=== PATIENT | female | born 1935 | race Caucasian/White ===

== ENCOUNTER 2017-02-06 09:06 | Inpatient (IN) | payer OTHER ==
[2016-12-29 10:40] VITALS: Ht 162.6 cm; Wt 79.9 kg
--- NOTE | 2016-12-29 11:16 | PAT Medication Instructions ---
Service Date Dec 29, 2016. Current Home Medication List Aspirin (Aspir-81), 81 MG PO HS Atorvastatin (Lipitor), 10 MG PO Q2D Calcium Carbonate (Tums), 2 TAB PO BID Cholecalciferol (Vitamin D3), 2,000 UNITS PO QAM Coenzyme Q10 (Ubidecarenone) (Coq-10), 100 MG PO QAM Ezetimibe (Zetia), 10 MG PO HS Ibuprofen (Advil), 400 MG PO PRN Indapamide (Lozol), 2.5 MG PO 3XWEEK Latanoprost (Latanoprost), 1 DROP OPB HS Levocetirizine Dihydrochloride (Xyzal), 1 TAB PO HS Pantoprazole (Protonix), 40 MG PO Q2D Potassium Chloride (Micro-K Ext Rel), 20 MEQ PO QAM Senna (Senokot), 1 TAB PO HS Valsartan (Diovan), 40 MG PO HS [Premarin Cream], 1 DOSE TOP 2XWEEK Medication Instructions For Your Scheduled Surgery - Hold the following medications 2 weeks prior to surgery: Coenzyme Q10 (Ubidecarenone) (Coq-10), 100 MG PO QAM - Hold the following medications 7 days prior to surgery per surgeon instructions: Ibuprofen (Advil), 400 MG PO PRN - Hold the following medications evening prior to surgery: Valsartan (Diovan), 40 MG PO HS - Hold the following medications the morning of surgery: Potassium Chloride (Micro-K Ext Rel), 20 MEQ PO QAM Indapamide (Lozol), 2.5 MG PO 3XWEEK Cholecalciferol (Vitamin D3), 2,000 UNITS PO QAM Calcium Carbonate (Tums), 2 TAB PO BID - Take the following medications the morning of surgery with a sip of water: Pantoprazole (Protonix), 40 MG PO Q2D - Take the following medications as scheduled the night before surgery: Senna (Senokot), 1 TAB PO HS Premarin Cream, 1 DOSE TOP [id number] Levocetirizine Dihydrochloride (Xyzal), 1 TAB PO HS Latanoprost (Latanoprost), 1 DROP OPB HS Ezetimibe (Zetia), 10 MG PO HS Calcium Carbonate (Tums), 2 TAB PO BID Aspirin (Aspir-81), 81 MG PO HS Atorvastatin (Lipitor), 10 MG PO Q2D If you have any questions please call us at [phone] or [phone] ( [place]) or [phone]
--- NOTE | 2016-12-29 12:10 | DIAGNOSTIC IMAGING REPORT ---
CHEST 2 VIEWS ROUTINE CLINICAL HISTORY: Preoperative chest COMPARISON STUDY: 06/10/2014 FINDINGS: The cardiac and mediastinal contours are normal. There is no evidence of focal pulmonary consolidation. There is no evidence of failure. No pleural effusions are visualized.[ IMPRESSION: No active disease in the chest. Electronically signed by: Javad Sosa M.D. 12/29/2016 12:08 PM Dictated Date/Time: 12/29/2016 12:08 PM
[2016-12-29 12:27] LABS: BASO % 0.2 %; BASO ABS # 0.01 K/uL (0-0.2); COMPLETE YES; EOS % 5.7 %; HEMATOCRIT 38.6 % (37-47); IG% 0.2 %; LYMPH % 32.7 %; LYMPH ABS # 1.66 K/uL (1.2-3.4); MEAN CELL VOLUME 86.7 fL (80-100); MEAN CORPUSCULAR HEMOGLOBIN 30.1 pg (25-34); MEAN CORPUSCULAR HGB CONC 34.7 g/dl (32-36); MEAN PLATELET VOLUME 10.7 fL (7.4-10.4); MONO % 12.8 %; NEUT % 48.4 %; PLATELET COUNT 201 K/uL (130-400); RED BLOOD COUNT 4.45 M/uL (4.2-5.4); WHITE BLOOD COUNT 5.08 K/uL (4.8-10.8)
[2016-12-29 12:38] LABS: PROTHROMBIN TIME (PATIENT) 10.6 SECONDS (9.0-12.0)
[2016-12-29 12:42] LABS: URINE APPEARANCE CLOUDY (CLEAR); URINE BILIRUBIN NEG (NEG); URINE COLOR YELLOW; URINE EPITHELIAL CELL AUTO >30 /lpf (0-5); URINE NITRITE POS (NEG); URINE PH 5.5 (4.5-7.5); URINE SPECIFIC GRAVITY 1.022 (1.000-1.030); UROBILINOGEN NEG (NEG); ZZUR CULT IF INDIC CLEAN CATCH YES
[2016-12-29 12:52] LABS: MANUAL MICROSCOPIC REQUIRED? NO; REVIEW REQ? NO
[2016-12-29 13:17] LABS: BUN/CREATININE RATIO 21.2 (10-20); CALCIUM 9.1 mg/dl (8.5-10.1); CREATININE 0.98 mg/dl (0.60-1.20); POTASSIUM 3.5 mmol/L (3.5-5.1)
--- NOTE | 2017-02-01 14:44 | History and Physical ---
History & Physical Date Feb 01, 2017. Chief Complaint LEFT KNEE PAIN History of Present Illness The patient is a 82 year old female with complaints of left knee pain x 3-4 years. Patient rates the pain 5/10. She has pain with her daily activities, she has limited standing and walking tolerance. She has pain with weight bearing. Patient has failed injections, bracing, and NSAIDS. She is ready to proceed with left TKA. Past Medical/Surgical History HTN Hypercholesterolemia Acid Reflux Glaucoma Denies CAD, DM, DVT Additional History Hepatic Disease: No Endocrine Disorder: No Kidney Disease: No Hypertension: Yes Bleeding Tendencies: No Infectious Diseases: No Allergies Coded Allergies: Dorzolamide (Verified Adverse Reaction, Mild, BURNING, REDDNESS, WATERING OF EYES, 12/29/16) Home Medications Scheduled Aspirin (Aspir-81), 81 MG PO HS Atorvastatin (Lipitor), 10 MG PO Q2D Calcium Carbonate (Tums), 2 TAB PO BID Cholecalciferol (Vitamin D3), 2,000 UNITS PO QAM Coenzyme Q10 (Ubidecarenone) (Coq-10), 100 MG PO QAM Ezetimibe (Zetia), 10 MG PO HS Ibuprofen (Advil), 400 MG PO PRN Indapamide (Lozol), 2.5 MG PO 3XWEEK Latanoprost (Latanoprost), 1 DROP OPB HS Levocetirizine Dihydrochloride (Xyzal), 1 TAB PO HS Pantoprazole (Protonix), 40 MG PO Q2D Potassium Chloride (Micro-K Ext Rel), 20 MEQ PO QAM Senna (Senokot), 1 TAB PO HS Valsartan (Diovan), 40 MG PO HS [Premarin Cream], 1 DOSE TOP 2XWEEK Physical Examination Skin: warm/dry, no rash Eyes: normal inspection, EOMI, sclerae normal ENT: normal ENT inspection, pharynx normal Head: normocephalic, atraumatic Neck: supple, no adenopathy, trachea midline Respiratory/Chest: lungs clear, normal breath sounds, no respiratory distress Cardiovascular: regular rate, rhythm, no edema, no murmur Abdomen / GI: normal bowel sounds, non tender Back: normal inspection Extremities: normal inspection, + pertinent finding (neutral allignment, ROM 0- 115, +1 medial laxity. Vericose veins.) Neurologic/Psych: no motor/sensory deficits, alert, normal reflexes, oriented x 3 Diagnosis DJD LEFT KNEE Plan of Treatment Patient is going to proceed with left TKA with Dr. Cody at [facility] on January. She is planning to use [facility] for home PT upon discharge.
[~2017-02-06] VITALS: Ht 162.6 cm; Wt 79.9 kg
[~2017-02-06 09:06] MED LIST: ACETAMINOPHEN 500 MG TAB PO SCH; ASPI-232 PO; ATOR10TA88 PO; BUPIVACAINE 0.25% 30 ML VIAL ONE; BUPIVACAINE 0.5 % 5 MG/1 ML PF 10ML VIAL ONE; CALC500C3 PO; CEFAZOLIN 1000MG/55 ML D5W 55 ML IV SCH; COEN100C11 PO; CeleBREX 200 MG CAP PO SCH; DEXAMETHASONE 4 MG TAB PO SCH; DEXAMETHASONE INJ 8 MG in SYRINGE 0 ML IV SCH; EZET10TA63 PO; FAMOTIDINE 20 MG TAB PO SCH; IBUP-1050 PO; INDA1TAB3 PO; LACTATED RINGER'S 1000ML 1,000 ML IV SCH; LACTATED RINGER'S 1000ML IV SCH; LEVO-371 PO; METOCLOPRAMIDE HCL 10 MG TAB PO SCH; PANT40TA PO; POTA-335 PO; PREMARIN CREAM TOP; ROPIVACAINE 5MG/ML 30 ML 150 MG, BUPIVACAINE/EPINEPHR 0.5% MPF 30 ML, KETOROLAC TROMETH... INFIL SCH; SENN-61 PO; VALS40TA2 PO; VTMD1000 PO; XLTOPS OPB
[2017-02-06] MEDS ORDERED: MIDAZOLAM HCL 1 MG/ML 2ML VIAL ONE (09:21)
[2017-02-06] MEDS ORDERED: FENTANYL CITRATE INJ 50 MCG/1 ML 2 ML VIAL ONE (09:22)
[2017-02-06 09:33] VITALS: BP 151/70; PULSE 65; TEMP 36.5; O2SAT 97
--- NOTE | 2017-02-06 09:43 | History & Physical Bridge Note ---
H&P Re-Evaluation Bridge Note: I have examined the patient, reviewed the History & Physical and in the interval since the performance of the History & Physical I have noted the following changes of clinical significance: No changes noted
[2017-02-06] MEDS ORDERED: POVIDONE-IODINE OP SOLN 30 ML BTL ONE (10:09)
[2017-02-06] MEDS ORDERED: BACITRACIN 50000 UNIT VIAL ONE (10:09)
[2017-02-06] MEDS ORDERED: ORTHO JOINT ANESTHETIC ONE (10:09)
[2017-02-06] MEDS: TRANEXAMIC ACID INJ 1,000 MG in SODIUM CHLORIDE 0.9% 100ML 100 ML IV SCH ×2 (10:09→13:35)
[2017-02-06] MEDS ORDERED: PHENYLEPHRINE 100MCG/ML 5ML SYR IV PRN (10:45)
[2017-02-06] MEDS ORDERED: EpHEDrine SULFATE INJ 50 MG/ML AMP IV PRN (10:45)
[2017-02-06] MEDS ORDERED: ATROPINE SULFATE 0.1 MG/ML 5ML SYR IV PRN (10:45)
[2017-02-06] MEDS ORDERED: ONDANSETRON INJ 2 MG/ML 2 ML VIAL IV PRN ×2 (10:45→11:45)
[2017-02-06] MEDS ORDERED: HYDROmorphone INJ 2 MG/ML SYR/VIAL IV PRN (10:45)
[2017-02-06] MEDS ORDERED: KETOROLAC TROMETHAMINE 30 MG/ML VIAL IV. PRN (10:45)
[2017-02-06] MEDS ORDERED: LIDOCAINE HCL 2% 2 ML VIAL (20MG/ML) ONE (11:18)
[2017-02-06] MEDS ORDERED: PROPOFOL IV EMULSION 10 MG/ML 20 ML VIAL IV ONE (11:18)
[2017-02-06] MEDS ORDERED: ALUMINUM/MAGNESIUM/SIMETH (MAALOX MAX) 30 ML UDC PO PRN (11:45)
[2017-02-06] MEDS ORDERED: ZOLPIDEM TARTRATE 5 MG TAB PO PRN (11:45)
[2017-02-06] MEDS ORDERED: BISACODYL 10 MG SUPP PR PRN (11:45)
[2017-02-06] MEDS ORDERED: OXYCODONE HCL IR 5 MG TAB (IMMEDIATE RELEASE) PO PRN (11:45)
[2017-02-06] MEDS ORDERED: MAGNESIUM HYDROXIDE SUSP 30 ML UDC PO PRN (11:45)
--- NOTE | 2017-02-06 12:51 | Anesthesiology Progress Note ---
Anesthesia Post Op Note Date & Time Feb 06, 2017 at 12:50 Vital Signs Pain Intensity: 0 Vital Signs Past 12 Hours Date Time Temp Pulse Resp B/P (MAP) Pulse Ox O2 Delivery O2 Flow Rate FiO2 02/06/17 12:45 63 18 116/66 99 Nasal Cannula 2 02/06/17 12:35 57 15 119/53 98 Nasal Cannula 2 02/06/17 12:25 61 14 122/60 98 Nasal Cannula 2 02/06/17 12:15 36.1 98 12 126/61 97 Nasal Cannula 2 02/06/17 09:33 36.5 65 18 151/70 97 Room Air Notes Mental Status: alert / awake / arousable, participated in evaluation Pt Amnestic to Procedure: Yes Nausea / Vomiting: adequately controlled Pain: adequately controlled Airway Patency, RR, SpO2: stable & adequate BP & HR: stable & adequate Hydration State: stable & adequate Anesthetic Complications: no major complications apparent
--- NOTE | 2017-02-06 13:07 | [facility] Post Operative Brief Note ---
Immediate Operative Summary Operative Date Feb 06, 2017. Pre-Operative Diagnosis degenerative joint disease left knee Post-Operative Diagnosis degenerative joint disease left knee Procedure(s) Performed Left total knee arthroplasty Surgeon Dr. Terrence Cody Side Trimmer Surgeon(s) Misael Duque PA-C Estimated Blood Loss 20ml Findings as above Specimens A. Left knee bone and tissue Complication(s) None Disposition Recovery Room / PACU
--- NOTE | 2017-02-06 13:08 | OPERATIVE REPORT ---
DATE OF OPERATION: 02/06/2017 PREOPERATIVE DIAGNOSIS: Degenerative joint disease of the left knee. POSTOPERATIVE DIAGNOSIS: Same. PROCEDURE: Left total knee arthroplasty with the use of patient match implants. SURGEON: Terrence Tadeo DO FUR REMODELER: CRISTELA Luna certified. ANESTHESIA: Spinal. COMPLICATIONS: Zero. DISPOSITION: The patient tolerated the procedure well and returned to the recovery room in stable condition. IMPLANTS USED: [employer] II knee size 5 cemented femoral component, a size 3 tibial component, a size 11 PS insert and size 32 all poly patella. INDICATIONS: Ms. Paredes is a pleasant female who has unfortunately failed all forms of conservative measures. Therefore, she has decided to undergo elective surgical intervention. All risks and benefits of the surgery were discussed with the patient and the family in entirety. PROCEDURE: The patient was brought to the operating room and properly identified by myself, anesthesia, and staff. She was given a spinal anesthetic and placed on the operating table in the supine position. Tourniquets were applied to the left upper thigh. The leg was then prepped and draped in usual sterile fashion. We made a standard midline approach over the patella and dissected down through the subcutaneous tissue to identify the capsule and performed a medial capsulotomy with the patella everted and the knee flexed. The patient-matched implant was then put onto the femur. The femur measured to be a size 5. This was then put into place. We made the appropriate cuts and then placed a retractor behind the proximal tibia to retract anteriorly. We then placed the patient-matched knee implant on the tibia. It measured to be a size 3. A size 3 guide was then put in place. We used the tibial punch then put the trial components into place. We had very good range of motion, excellent stability, and excellent patella tracking. We removed the trial components and irrigated the wound. We impacted the components in place using antibiotic cement. All excess cement was removed. We then irrigated the wound once more. We closed the capsule with 0 PDS suture, deep dermis with 2-0 Vicryl, and finally the skin with anmol. A sterile dressing was applied. The patient was taken to the recovery room in stable condition. I attest to the content of the Intraoperative Record and any orders documented therein. Any exceptions are noted below. LEE ANN
[2017-02-06 13:10] VITALS: BP 108/53; PULSE 60; TEMP 36.5; O2SAT 98
[2017-02-06 14:28] VITALS: BP 104/64; PULSE 77; O2SAT 100
[2017-02-06] MEDS: SODIUM CHLORIDE 0.9% 1000ML 1,000 ML IV SCH ×2 (14:36→21:14)
[2017-02-06] MEDS: ACETAMINOPHEN 500 MG TAB PO SCH ×2 (15:23→21:10)
[2017-02-06 16:10] VITALS: BP 110/70; PULSE 78; TEMP 36.5; O2SAT 100
[2017-02-06] MEDS: CEFAZOLIN IV 2,000 MG in DEXTROSE 5% 50ML 50 ML IV SCH (17:38)
[2017-02-06 19:10] VITALS: BP 98/63; PULSE 61; TEMP 36.6; O2SAT 96
[2017-02-06] MEDS: DOCUSATE SODIUM 100 MG CAP PO SCH (21:10)
[2017-02-06] MEDS: CeleBREX 200 MG CAP PO SCH (21:11)
[2017-02-06] MEDS: ASPIRIN 81 MG ECTAB PO SCH (21:13)
[2017-02-06] MEDS ORDERED: NURSING VERBAL MED ORDER ONE (21:30)
[2017-02-06] MEDS ORDERED: LATANOPROST 0.005% OP SOLN 2.5 ML BTL OPB ONE (22:00)
[2017-02-06 23:15] VITALS: BP 102/64; PULSE 67; TEMP 36.6; O2SAT 97
[2017-02-07] MEDS: CEFAZOLIN IV 2,000 MG in DEXTROSE 5% 50ML 50 ML IV SCH (01:31)
[2017-02-07 03:10] VITALS: BP 115/65; PULSE 54; TEMP 36.6; O2SAT 98
[2017-02-07 04:10] VITALS: BP 115/65; PULSE 54; TEMP 36.6; O2SAT 98
[2017-02-07 05:58] LABS: HEMATOCRIT 33.6 % (37-47); MEAN CORPUSCULAR HEMOGLOBIN 30.4 pg (25-34); MEAN CORPUSCULAR HGB CONC 34.5 g/dl (32-36); MEAN PLATELET VOLUME 10.6 fL (7.4-10.4); PLATELET COUNT 171 K/uL (130-400); RED BLOOD COUNT 3.82 M/uL (4.2-5.4); WHITE BLOOD COUNT 7.68 K/uL (4.8-10.8)
[2017-02-07] MEDS: ACETAMINOPHEN 500 MG TAB PO SCH (05:59)
[2017-02-07] MEDS ORDERED: DEXAMETHASONE INJ 10 MG in SYRINGE 0 ML IV ONE (07:30)
[2017-02-07] MEDS: SODIUM CHLORIDE 0.9% 1000ML 1,000 ML IV SCH (07:36)
[2017-02-07 08:00] VITALS: BP 120/78; PULSE 54; TEMP 36.3; O2SAT 99
[2017-02-07 08:13] VITALS: O2SAT 99
[2017-02-07] MEDS: DOCUSATE SODIUM 100 MG CAP PO SCH (08:48)
[2017-02-07] MEDS: CeleBREX 200 MG CAP PO SCH (08:48)
[2017-02-07] MEDS: ASPIRIN 81 MG ECTAB PO SCH (08:48)
[2017-02-07] MEDS ORDERED: PANTOprazole SOD 40 MG TAB PO SCH (09:00)
--- NOTE | 2017-02-07 10:55 | Orthopedic Progress Note ---
Orthopedic Progress Note Date of Service Feb 07, 2017. Subjective Post OP Day: 1 Reports: feeling well, Denies: chest pain, SOB, nausea / vomiting, light headedness, calf pain Objective calves soft nontender, N/V intact, dressing C/D/I, A&O x3, toes mobile, hemovac drainage (200/45cc per shift) Date Time Temp Pulse Resp B/P (MAP) Pulse Ox O2 Delivery O2 Flow Rate FiO2 02/07/17 08:13 99 Room Air 02/07/17 08:00 36.3 54 20 120/78 (92) 99 Room Air 02/07/17 08:00 Room Air 02/07/17 04:10 36.6 54 16 115/65 (82) 98 Room Air 02/06/17 23:15 36.6 67 16 102/64 (77) 97 Room Air 02/06/17 23:10 Room Air 02/06/17 19:10 36.6 61 16 98/63 (75) 96 Room Air 02/06/17 16:10 36.5 78 18 110/70 (83) 100 Nasal Cannula 2.0 02/06/17 14:28 77 18 104/64 (77) 100 Nasal Cannula 2.0 02/06/17 13:10 36.5 60 20 108/53 (71) 98 Nasal Cannula 2.0 02/06/17 13:10 98 Nasal Cannula 2.0 02/06/17 13:10 Nasal Cannula 2.0 02/06/17 12:55 36.2 59 17 113/60 96 Nasal Cannula 2 02/06/17 12:45 63 18 116/66 99 Nasal Cannula 2 02/06/17 12:35 57 15 119/53 98 Nasal Cannula 2 02/06/17 12:25 61 14 122/60 98 Nasal Cannula 2 02/06/17 12:15 36.1 98 12 126/61 97 Nasal Cannula 2 Laboratory Results 24 Hours: Test 02/07/17 05:45 Hematocrit 33.6 % Hemoglobin 11.6 g/dL Assessment & Plan Assessment: POD#1 sp left TKA Inhouse Planning Pain Management: Celebrex, PO Tylenol, Oxy IR DVT Prophylaxis: ASA, other Discharge Planning Discharge Planning: home with home health ([facility])
--- NOTE | 2017-02-07 10:56 | Discharge Instructions ---
Discharge Instructions Date of Service Feb 07, 2017. Admission Reason for Admission: Left Knee Degenerative Arthritis Discharge Discharge Diagnosis / Problem: SP LEFT TKA Discharge Goals Goal(s): Decrease discomfort, Improve function, Increase independence Activity Recommendations Activity Limitations: per Instructions/Follow-up section . Instructions / Follow-Up Instructions / Follow-Up ACTIVITY RECOMMENDATIONS: SELF CARE INSTRUCTIONS AFTER TOTAL KNEE REPLACEMENT A. You may need to continue a physical therapy program after discharge from the hospital. There are several options available to you. Your doctor will assist you in selecting the best one for you. 1. An out-patient facility 2 to 3 times a week for therapy or home therapy. 2. Continue working on all exercises taught to you in the hospital. Your goals should be to increase bending of your knee to 90 degrees and beyond and to fully straighten your knee. B. You may progress at your own pace from walking with a walker or crutches to a cane; then to no assistive devices. C. Make walking a part of your daily routine. Be up as much as comfortable with rest periods throughout the day. Rest with leg elevation is very important. Use the ice wrap frequently for the first 3-4 weeks. D. There are no restrictions on activities. You may ride in a car, shop, participate in bag end sewer and all social activities. E. Wear the long elastic stockings (JACQUELYN hose) 20 hours a day for 2 weeks after surgery. They can be removed several times a day for laundering and for a bath. F. You may shower, no tub baths until cleared by your doctor. SPECIAL CARE INSTRUCTIONS: VERY IMPORTANT TO READ AND REVIEW A. There are a few signs you need to watch for after you are home. Call [facility] if you notice any of the followin. Increased severe knee pain. Some pain is expected especially when you exercise. 2. Increased swelling in your leg or knee; pain or swelling of the calf muscle in either lower leg. 3. Any fluid drainage from the incision. 4. Shortness of breath or chest pain. B. Please call [facility] at if you have any concerns or questions about your operation or recovery. The doctor or his nurse will return your call promptly. C. You must take antibiotics before dental work, bladder, bowel or other surgery. Your doctor will provide you with a permanent care to carry describing this precaution. IMPORTANT: * REMEMBER TO TAKE ASPIRIN, 81 MG, TWICE DAILY FOR 4 WEEKS UNLESS OTHERWISE DIRECTED. THIS IS YOUR BLOOD THINNER. * HIGH RISK PATIENTS MAY BE PRESCRIBED A STRONGER BLOOD THINNER. THIS WILL BE PROVIDED AT DISCHARGE. * CALL IF INCREASED PAIN, REDNESS, DRAINAGE OR FEVER GREATER THAT 101. * WEAR JACQUELYN HOSE 20 HOURS PER DAY FOR 2 WEEKS. DERMABOND Prineo- This is a mesh tape dressing that is covered with glue. It should remain in place until the incision is properly healed, usually 10-14 days. This dressing is designed to naturally slough off. You may trim the excess mesh tape as it peels off. Incision may be briefly wet in a shower. Dry immediately by blotting with a clean, dry towel. Do not bath or swim until instructed by your doctor. Do not scratch, rub, or pick at the dressing. Do not apply any topical ointments or lotions until dressing is completely removed and/or instructed by your doctor. There may be a small piece of suture material at one end of your incision. Do not pull or trim this. If it is bothersome or catching on clothing, you may cover it with a band-aid. FOLLOW UP VISIT: If appointment is not already scheduled: Please call [facility] to make a follow-up appointment for 2 weeks after your surgery at . Current Hospital Diet Patient's current hospital diet: Regular Diet Discharge Diet Recommended Diet: Regular Diet Procedures Procedures Performed: Left total knee arthroplasty Pending Studies Studies pending at discharge: no Medical Emergencies . Who to Call and When: Medical Emergencies: If at any time you feel your situation is an emergency, please call 911 immediately. . Non-Emergent Contact Non-Emergency issues call your: Surgeon . "Provider Documentation" section prepared by Ruth Fontana. . VTE Core Measure Inpt VTE Proph given/why not?: Other Anticoagulation
[2017-02-07] MEDS ORDERED: ACET-24 PO (10:58)
[2017-02-07] MEDS ORDERED: CLB200 PO (10:58)
[2017-02-07] MEDS ORDERED: RXC5 PO (10:58)
[2017-02-07] MEDS ORDERED: ONDA8TAB6 PO (10:58)
[2017-02-07] MEDS ORDERED: ASPEC81 PO (10:58)
[2017-02-07 11:42] VITALS: BP 120/78; PULSE 54; TEMP 36.3; O2SAT 99
[2017-02-07 12:00] VITALS: BP 120/70; PULSE 66; TEMP 36.6; O2SAT 96
[2017-02-07] MEDS ORDERED: LATANOPROST 0.005% OP SOLN 2.5 ML BTL OPB SCH (21:00)
--- NOTE | 2017-02-07 21:14 | DISCHARGE SUMMARY ---
DISCHARGE DIAGNOSIS: Degenerative joint disease, left knee. SECONDARY DIAGNOSES: Hypertension, hypercholesterolemia, gastroesophageal reflux disease, glaucoma. CONSULTS: None. COMPLICATIONS: None. PROCEDURE: Left total knee arthroplasty performed by Dr. Cody on 02/06/2017. BRIEF HISTORY: As dictated in the history and physical. HOSPITAL SUMMARY: The patient was admitted on the above noted date and had the above noted surgery performed which she tolerated well. On the first postoperative day, patient was feeling well and had no complaints. Calves were soft, nontender, neurovascularly intact. Dressings were clean, dry and intact. Toes were mobile. Vital signs were stable, afebrile and hemoglobin was 11.6. The patient was started on physical therapy protocol and continued on DVT prophylaxis and pain management. The patient was progressing with physical therapy, remaining stable and it was felt that she could be discharged to home on 02/07/2017. For further review, please see chart. LAB AND X-RAY DATA: As per chart. DISCHARGE INSTRUCTIONS: The patient was discharged to home in satisfactory condition on 02/07/2017. DIET: Regular. ACTIVITY: Follow TKA instruction sheets and special care instructions as noted. Follow up with Dr. Cody in 2 weeks. The patient to call for appointment if one has not been made for you. DISCHARGE MEDICATIONS: Acetaminophen 1000 mg p.o. q. 8 hours for 30 days, aspirin 81 mg p.o. b.i.d. for 30 days, Celebrex 200 mg p.o. b.i.d., Zofran 8 mg p.o. q. 8 hours p.r.n. nausea, oxycodone 5-10 mg p.o. q. 4 hours p.r.n. Resume home meds as listed.
--- NOTE | 2017-03-13 19:44 | [facility] Operative Report ---
Operative Report Operative Date Mar 13, 2017. Pre-Operative Diagnosis degenerative joint disease left knee; amendment to op report of 02/06/2017 Post-Operative Diagnosis degenerative joint disease left knee Procedure(s) Performed Left total knee arthroplasty Surgeon Dr. Terrence Cody Shook Splicer Surgeon(s) Misael Duque PA-C Estimated Blood Loss 20ml Findings as above Specimens A. Left knee bone and tissue Disposition Recovery Room / PACU Description of Procedure Due to the complex nature of the procedure, the entire surgery was performed with the operational assistance of [the (ROBINSON)]. The assistant professor of spanish was under direct supervision, was involved in the actual performance of all aspects of the surgical procedure including hemostasis, tissue retraction and incision, instrument management, patient positioning, and wound closure. I attest to the content of the Intraoperative Record and any orders documented therein. Any exceptions are noted below.
== END 2017-02-07 13:54 | disposition home health service (06) | DRG 470 ==
LOC: C.ACU 09:06 → C.3E 09:30 → ENRESERV 12:49 → CMPBEDREQ 13:40
PROVIDERS: ADMIT Orthopaedic Surgery; ATTEND Orthopaedic Surgery
PROC: 0SRD0J9 Replacement of Left Knee Joint with Synthetic Substitute, Cemented, Open Approach (ICD-10-PCS; principal; 2017-02-06 11:00)
DX: M17.12 Unilateral primary osteoarthritis, left knee (principal); I10 Essential (primary) hypertension; E78.00 Pure hypercholesterolemia, unspecified; K21.9 Gastro-esophageal reflux disease without esophagitis; H40.9 Unspecified glaucoma; Z79.82 Long term (current) use of aspirin; Z79.899 Other long term (current) drug therapy